=== PATIENT | male | born 1985 | race Caucasian/White ===

== ENCOUNTER 2021-11-15 00:54 | Emergency (ER) | payer OTHER ==
[2021-11-15 01:06] VITALS: BP 123/84; PULSE 93; RESP 18; TEMP 97.2; BMI 25.8
== END 2021-11-15 01:47 | disposition home or self-care (01) ==
LOC: JER 00:54
DX: F12.129 Cannabis abuse with intoxication, unspecified (principal)
CPT/HCPCS: 82962; 99283-25

== ENCOUNTER 2022-08-14 19:19 | Emergency (ER) | payer OTHER ==
[2022-08-14 19:31] VITALS: BP 133/92; PULSE 90; RESP 20; TEMP 98.2; BMI 25.8
[2022-08-14] MEDS ORDERED: DIPHTH,PERTUSS(ACELL),TET 0.5 ML DISP.SYRIN IM ONE ×2 (19:32→20:13)
== END 2022-08-14 22:56 | disposition home or self-care (01) ==
LOC: JERFT 19:19 → JER 19:19 → JERFT 22:56
PROC: 0HQDXZZ Repair Right Lower Arm Skin, External Approach (ICD-10-PCS; principal; 2022-08-14)
PROC: 3E0234Z Introduction of Serum, Toxoid and Vaccine into Muscle, Percutaneous Approach (ICD-10-PCS; 2022-08-14)
DX: S61.214A Laceration without foreign body of right ring finger without damage to nail, initial encounter (principal); W27.4XXA Contact with kitchen utensil, initial encounter
CPT/HCPCS: 12002-25; 90471; 90715; 99283-25